=== PATIENT | male | born 1985 | race Caucasian/White ===

== ENCOUNTER 2018-10-09 21:19 | Inpatient (IN) | payer OTHER ==
--- NOTE | 2018-10-09 21:28 | PDOC ---
Rapid Medical Evaluation Time Seen by Provider: 10/09/18 21:26 Medical Evaluation: 10/09/18 21:26 I have performed a brief in-person evaluation of this patient. The patient presents with a chief complaint of: chest pain brought by ems, got ntg 0.8 and asa 81 mg x 4. Pertinent physical exam findings:stable and in NAD, non-focal I have ordered the following:labs, ekg charge nurse aware that patient needs to go into er and brought in The patient will proceed to the ED for further evaluation. 10/09/18 21:43
[2018-10-09 21:29] VITALS: BMI 34.9
[2018-10-09 22:35] LABS: BASO % 0.8 % (0-2.0); EOS % 0.1 % (0-4.5); HEMATOCRIT 45.4 % (35.4-49); HEMOGLOBIN 15.7 GM/dL (11.7-16.9); LYMPH % 17.9 % (8-40); MCH 31.2 pg (25.7-33.7); MCHC 34.5 g/dl (32.0-35.9); MEAN CELL VOLUME 90.4 fl (80-96); MEAN PLT VOLUME 8.9 fl (7.5-11.1); MONO % 9.4 % (3.8-10.2); NEUT % 71.8 % (42.8-82.8); PLATELET COUNT 256 K/MM3 (134-434); RBC 5.03 M/mm3 (4.00-5.60); RDW 12.9 % (11.9-15.9); WHITE BLOOD COUNT 11.8 K/mm3 (4.0-10.0)
--- NOTE | 2018-10-09 22:37 | PDOC ---
Attending Attestation - Resident Resident Name: Leo Thomas - ED Attending Attestation I have performed the following: I have examined & evaluated the patient, The case was reviewed & discussed with the resident, I agree w/resident's findings & plan - HPI HPI: 10/10/18 02:31 see resident hpi - Physicial Exam PE: 10/10/18 02:31 agree with resident exam - Medical Decision Making 10/10/18 02:31 33 yo male with lightheadedness /cp and elevated bp Labs reveal both hypokalemia and hypomagnesemia, replacement administred in ED Patient has been persistently tachycardic and hypertensive Plan for CTA due to active intermittent chest pain and admission to medical service for further evaluation
[2018-10-09 22:47] LABS: INR 1.13 (0.83-1.09); PROTHROMBIN TIME (PATIENT) 13.3 SEC (9.7-13.0)
[2018-10-09 22:54] LABS: MAGNESIUM 0.9 mg/dL (1.8-2.4)
[2018-10-09 23:02] LABS: ALBUMIN 4.1 g/dl (3.4-5.0); BILIRUBIN,TOTAL 0.7 mg/dL (0.2-1); CALCIUM 8.9 mg/dL (8.5-10.1); CREATININE 1.2 mg/dL (0.55-1.3); POTASSIUM 3.1 mmol/L (3.5-5.1); TOT PROT 7.8 g/dl (6.4-8.2)
--- NOTE | 2018-10-09 23:50 | PDOC ---
History of Present Illness - General Chief Complaint: Chest Pain Stated Complaint: CHEST PAIN Time Seen by Provider: 10/09/18 21:26 History Source: Patient Exam Limitations: No Limitations - History of Present Illness Initial Comments: 10/09/18 23:42 Pieter Butts is an otherwise healthy 33M presenting with high blood pressure and chest pain. 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 Per EMS, SBP in 200s, brought down to 150s after 2x nitrates in ambulance. Describes chest pain as midchest, non-radiating, and has mostly resolved at this time. Denies SOB, dizziness, palpitations, weakness , changes to vision, headache, urinary symptoms. Does not have a good sense of why this is happening other than perhaps stress at work. Has had an episode of this one time in the past many years ago that resolved on its own, has not had any heart or kidney problems since. Denies family history of cardiac disease other than a childhood murmur that he and his sister have, no sudden cardiac deaths in his family. Past History - Past Medical History Allergies/Adverse Reactions: Allergies Allergy/AdvReac Type Severity Reaction Status Date / Time shellfish derived Allergy Verified 10/09/18 23:58 COPD: No HTN: Yes (no meds) - Immunization History Immunization Up to Date: No - Suicide/Smoking/Psychosocial Hx Smoking History: Current some day smoker Information on smoking cessation initiated: Yes Hx Alcohol Use: No Drug/Substance Use Hx: No Review of Systems - Review of Systems Constitutional: No: Symptoms Reported HEENTM: No: Eye Pain, Blurred Vision, Tinnitus, Nose Bleeding, Hearing Loss, Mouth Swelling Cardiac (ROS): Yes: Chest Pain, Chest Tightness. No: Edema, Lightheadedness, Palpitations, Syncope ABD/GI: No: Constipated, Diarrhea, Nausea, Vomiting : No: Burning, Dysuria, Discharge, Frequency, Flank Pain, Hematuria, Incontinence, Pain, Urgency Musculoskeletal: No: Back Pain, Muscle Pain, Muscle Weakness Integumentary: No: Symptoms Reported Neurological: No: Headache, Numbness, Tingling Endocrine: No: Symptoms Reported Hematologic/Lymphatic: No: Symptoms Reported All Other Systems: Reviewed and Negative *Physical Exam - Vital Signs Last Vital Signs Temp Pulse Resp BP Pulse Ox 98.9 F 112 H 16 159/113 H 100 10/09/18 21:25 10/09/18 22:49 10/09/18 22:49 10/09/18 22:49 10/09/18 22:49 - Physical Exam General Appearance: Yes: Nourished, Appropriately Dressed, Obese. No: Apparent Distress HEENT: positive: EOMI, CHRISTIANO, Normal Voice, Pharynx Normal. negative: Scleral Icterus (R), Scleral Icterus (L), Pharyngeal Erythema, Tonsillar Exudate, Tonsillar Erythema, Nasal Congestion Neck: positive: Trachea midline, Normal Thyroid, Supple. negative: Tender, Rigid, Lymphadenopathy (R), Lymphadenopathy (L) Respiratory/Chest: positive: Lungs Clear, Normal Breath Sounds. negative: Chest Tender, Respiratory Distress, Labored Respiration, Crackles, Rales, Rhonchi Cardiovascular: positive: Regular Rhythm, Tachycardia. negative: Edema, Murmur Gastrointestinal/Abdominal: positive: Normal Bowel Sounds, Tender, Soft. negative: Organomegaly Musculoskeletal: positive: Normal Inspection. negative: CVA Tenderness Extremity: positive: Normal Capillary Refill, Normal Inspection, Normal Range of Motion. negative: Tender, Pelvis Stable Integumentary: positive: Normal Color, Dry, Warm Neurologic: positive: Fully Oriented, Alert, Normal Mood/Affect, Normal Response ED Treatment Course - LABORATORY CBC & Chemistry Diagram: 10/09/18 22:25 10/10/18 01:30 - ADDITIONAL ORDERS Additional order review: Laboratory Results 10/09/18 10/09/18 10/09/18 22:25 22:25 22:25 PT with INR 13.30 H INR 1.13 H Sodium 137 Potassium 3.1 L Chloride 97 L Carbon Dioxide 23 Anion Gap 16 BUN 7.0 Creatinine 1.2 Est GFR (CKD-EPI)AfAm 92.18 Est GFR (CKD-EPI)NonAf 79.53 Random Glucose 145 H Calcium 8.9 Magnesium 0.9 L Total Bilirubin 0.7 AST 84 H ALT 95 H Alkaline Phosphatase 73 Creatine Kinase 923 H Creatine Kinase Index 0.8 CK-MB (CK-2) 7.9 H Troponin I 0.02 Total Protein 7.8 Albumin 4.1 10/09/18 22:25 RBC 5.03 MCV 90.4 MCHC 34.5 RDW 12.9 MPV 8.9 Neutrophils % 71.8 Lymphocytes % 17.9 Monocytes % 9.4 Eosinophils % 0.1 Basophils % 0.8 - RADIOLOGY Radiology Studies Ordered: Category Date Time Status CHEST X-RAY PORTABLE* [RAD] Stat Radiology 10/09/18 22:34 Taken Medical Decision Making - Medical Decision Making 10/09/18 23:42 Pieter Butts is an otherwise healthy 33M presenting with high blood pressure and chest pain. Presentation concerning for hypertensive urgency vs. emergency, as well as SD vs. aortic dissection. Will evaluate via: CMP CBC CP ECG CXR Will repeat VS and re-assess. 10/10/18 01:58 Patient remains persistently tachycardic despite fluids and rest, cannot r/o PE as an underlying cause. SBP 150s-180s without medication, patient denies any symptoms of end-organ failure including vision changes, urinary sx. Getting CTA to evaluate for PE. 2+ proteinuria on UA. Will need admission for further evaluation of patient's HTN and tachycardia. In absence of PE, concerned for anxiety vs. pheochromacytoma vs. renal artery stenosis vs. hyperthyroidism vs. other adrenal pathology. 10/10/18 04:10 CTA results negative for PE, has fatty liver. Does not have a PMD. Reports that he is anxious about having tests run, nurse reports he was jittery while getting CTA. K improved 3.1 -> 3.4, giving another 40mg PO K. CK up to 975. 10/10/18 04:21 HR down to 80s when sleeping, consistent with anxiety. However, HTN persists, SBP ranges from 160s-180s. 10/10/18 05:11 Discussed admission to tele/obs with Dr. Raymond under Dr. Ferguson. *DC/Admit/Observation/Transfer Diagnosis at time of Disposition: Tachycardia Hypertension Qualifiers: Hypertension type: unspecified Qualified Code(s): I10 - Essential (primary) hypertension - Discharge Dispostion Condition at time of disposition: Stable Decision to Admit order: Yes - Referrals - Patient Instructions - Post Discharge Activity
[2018-10-09] MEDS ORDERED: MAGNESIUM SULF 50% (8.12 MEQ/2 ML-1 GM VIAL) IVPB ONE (23:56)
[2018-10-09] MEDS ORDERED: POTASSIUM CHLORIDE TABS 20 MEQ TABLET.ER (FP) PO ONE (23:57)
[2018-10-10] MEDS ORDERED: MAGNESIUM 1GM/D5W - 2 GM/200 ML IVPB IVPB ONE (00:01)
[2018-10-10 01:53] LABS: EPI CELLS 11.9 /HPF (0-5/HPF); HYALINE CASTS 29 /lpf (0-8); URINE APPEARANCE CLOUDY; URINE BACTERIA 3679.1 /hpf (NEGATIVE); URINE BILIRUBIN 1+ (NEGATIVE); URINE COLOR DK YELLOW; URINE GLUCOSE (UA) TRACE (NEGATIVE); URINE KETONE TRACE (NEGATIVE); URINE LEUK ESTERASE 1+ (NEGATIVE); URINE NITRITE NEGATIVE (NEGATIVE); URINE PROTEIN 2+ (NEGATIVE); URINE RBC 1 /hpf (0-4); URINE WBC 13 /hpf (0-5)
[2018-10-10 01:59] LABS: COCAINE, UR NEGATIVE ng/ml (CUTOFF=300); METHADONE, UR NEGATIVE ng/ml (CUTOFF=300); OPIATES, URI NEGATIVE ng/ml (CUTOFF=300); PHENCYCLIDINE,URINE NEGATIVE ng/ml (CUTOFF=25); URINE AMPHETAMINES NEGATIVE ng/ml (CUTOFF=500); URINE BARBITURATES NEGATIVE ng/ml (CUTOFF=200); URINE BENZODIAZEPINES NEGATIVE ng/ml (CUTOFF=200)
[2018-10-10 02:35] LABS: ALBUMIN 4.2 g/dl (3.4-5.0); BLOOD UREA NITROGEN 8.3 mg/dL (7-18); CALCIUM 8.7 mg/dL (8.5-10.1); CREATININE 1.1 mg/dL (0.55-1.3); POTASSIUM 3.4 mmol/L (3.5-5.1); TOT PROT 8.1 g/dl (6.4-8.2)
[2018-10-10] MEDS ORDERED: POTASSIUM CHLORIDE TABS 20 MEQ TABLET.ER (FP) PO ONE ×2 (03:46→04:05)
[2018-10-10 04:00] VITALS: TEMP 99.3
--- NOTE | 2018-10-10 05:31 | PN ---
Teaching Attending Note Name of Resident: Paul Velarde ATTENDING PHYSICIAN STATEMENT I saw and evaluated the patient. chart, imaging, data reviewed. I reviewed the resident's note and discussed the case with the resident. I agree with the resident's findings and plan as documented. SUBJECTIVE: 33yo man, morbidly obese, with prior episode of htn, c/o anxiety, chest pain, fast heart rate which began around 3pm on 10/09 and persisted until he was in ambulance in route to [facility]. He attributes this to not eating properly and increased stressed at work. Denied any previous kidney disease or heart disease. Reports feeling better now. OBJECTIVE: Last Vital Signs Temp Pulse Resp BP Pulse Ox 99.3 F 108 H 20 167/112 H 100 10/10/18 03:45 10/10/18 03:45 10/10/18 03:45 10/10/18 03:45 10/10/18 03:45 general- obese, nontoxic heent- moist oral mucosa neck supple cv -s1+s2+ tachycardia chest clear abdomen -soft nt ext -no edema Abnormal Lab Results 10/09/18 10/09/18 10/09/18 22:25 22:25 22:25 WBC 11.8 H Absolute Neuts (auto) 8.4 H PT with INR INR Potassium 3.1 L Chloride 97 L Random Glucose 145 H Magnesium 0.9 L AST 84 H ALT 95 H Creatine Kinase 923 H CK-MB (CK-2) 7.9 H Urine Protein Urine Ketones Urine Bilirubin Ur Leukocyte Esterase 10/09/18 10/10/18 10/10/18 22:25 01:30 01:30 WBC Absolute Neuts (auto) PT with INR 13.30 H INR 1.13 H Potassium 3.4 L Chloride 97 L Random Glucose 138 H Magnesium AST 87 H ALT 94 H Creatine Kinase CK-MB (CK-2) Urine Protein 2+ H Urine Ketones Trace H Urine Bilirubin 1+ H Ur Leukocyte Esterase 1+ H 10/10/18 01:30 WBC Absolute Neuts (auto) PT with INR INR Potassium Chloride Random Glucose Magnesium AST ALT Creatine Kinase 975 H CK-MB (CK-2) 8.1 H Urine Protein Urine Ketones Urine Bilirubin Ur Leukocyte Esterase ekg reviewed - sinus tachycardia ASSESSMENT AND PLAN: severe hypertension, sinus tachy, electrolyte disturbances . Uncertain etiology , may be from malnutrition DD includes conns syndrome-especially snce low mg, hypertyrhyoidism unlikely as tsh was wnl, substance abuse- although utox negative. R/o pheochromocytoma. Doubt acs as trops neg x2. Doubt aortic dissection or PE. No risk factors for PE. -tele obs -trend trops -echo -24hr vma in urine -24hr urine cortisol -montitor vs closely -renal a. dopple u/s -replete mg, k, repeat -f/u CTA report -dvt ppx -heparin sc
--- NOTE | 2018-10-10 07:26 | HP ---
CHIEF COMPLAINT: Substernal chest pain for 12 hours PCP: None HISTORY OF PRESENT ILLNESS: This is a 33 year old male with no significant PMH. He presented to the ER with complaints of gradual onset, exertional substernal chest pain from 4PM to 2AM today. 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 The pain was rated 8/ 10 in intensity, with a pressure like quality, intermittent in nature, and not associated with any dizziness and SOB. There are no associated complaints of light headedness, palpitations, nausea, vomiting, diarrhea, constipation, dysuria, or hematuria. ER course was notable for: (1) CTA no acute pathology (2) B/P 167/112 (3) Trops 2x negative, EKG no ST changes Recent Travel: [facility] and [place] for 1 day, no hiking or sick contacts PAST MEDICAL HISTORY: States that he had a murmur as a child PAST SURGICAL HISTORY: None Social History: Smokin-2 cigars a week, no cigarettes Alcohol: socially Drugs: none Family History: Allergies shellfish derived Allergy (Verified 10/09/18 23:58) HOME MEDICATIONS: REVIEW OF SYSTEMS CONSTITUTIONAL: Absent: fever, chills, diaphoresis, generalized weakness, malaise, loss of appetite, weight change HEENT: Absent: rhinorrhea, nasal congestion, throat pain, throat swelling, difficulty swallowing, mouth swelling, ear pain, eye pain, visual changes CARDIOVASCULAR: Absent: chest pain, syncope, palpitations, irregular heart rate, lightheadedness , peripheral edema RESPIRATORY: CHEST PAIN Absent: cough, shortness of breath, dyspnea with exertion, orthopnea, wheezing, stridor, hemoptysis GASTROINTESTINAL: Absent: abdominal pain, abdominal distension, nausea, vomiting, diarrhea, constipation, melena, hematochezia GENITOURINARY: Absent: dysuria, frequency, urgency, hesitancy, hematuria, flank pain, genital pain MUSCULOSKELETAL: Absent: myalgia, arthralgia, joint swelling, back pain, neck pain SKIN: Absent: rash, itching, pallor HEMATOLOGIC/IMMUNOLOGIC: Absent: easy bleeding, easy bruising, lymphadenopathy, frequent infections ENDOCRINE: Absent: unexplained weight gain, unexplained weight loss, heat intolerance, cold intolerance NEUROLOGIC: Absent: headache, focal weakness or paresthesias, dizziness, unsteady gait, seizure, mental status changes, bladder or bowel incontinence PSYCHIATRIC: Absent: anxiety, depression, suicidal or homicidal ideation, hallucinations. PHYSICAL EXAMINATION Vital Signs - 24 hr 10/09/18 10/09/18 10/10/18 21:25 22:49 00:35 Temperature 98.9 F Pulse Rate 118 H Pulse Rate [ 112 H 105 H Left Radial] Respiratory 19 16 22 H Rate Blood Pressure 134/99 Blood Pressure 159/113 H 183/108 H [Right Arm] O2 Sat by Pulse 100 100 100 Oximetry (%) 10/10/18 10/10/18 03:41 03:45 Temperature 99.3 F Pulse Rate Pulse Rate [ 108 H Left Radial] Respiratory 20 Rate Blood Pressure Blood Pressure 167/112 H [Right Arm] O2 Sat by Pulse 97 100 Oximetry (%) GENERAL: Awake, alert, and fully oriented, in no acute distress. HEAD: Normal with no signs of trauma. EYES: Pupils equal, round and reactive to light, extraocular movements intact, sclera anicteric, conjunctiva clear. No lid lag. EARS, NOSE, THROAT: Ears normal, nares patent, oropharynx clear without exudates. Moist mucous membranes. NECK: Normal range of motion, supple without lymphadenopathy, JVD, or masses. LUNGS: Breath sounds equal, clear to auscultation bilaterally. No wheezes, and no crackles. No accessory muscle use. HEART: Regular rate and rhythm, normal S1 and S2 without murmur, rub or gallop. ABDOMEN: Soft, nontender, not distended, normoactive bowel sounds, no guarding, no rebound, no masses. No hepatomegaly or splenomegaly. MUSCULOSKELETAL: Normal range of motion at all joints. No bony deformities or tenderness. No CVA tenderness. UPPER EXTREMITIES: 2+ pulses, warm, well-perfused. No cyanosis. No clubbing. No peripheral edema. LOWER EXTREMITIES: 2+ pulses, warm, well-perfused. No calf tenderness. No peripheral edema. NEUROLOGICAL: Cranial nerves II-XII intact. Normal speech. Normal gait. PSYCHIATRIC: Cooperative. Good eye contact. Appropriate mood and affect. SKIN: Warm, dry, normal turgor, no rashes or lesions noted, normal capillary refill. Laboratory Results - last 24 hr 10/09/18 10/09/18 10/09/18 22:25 22:25 22:25 WBC 11.8 H RBC 5.03 Hgb 15.7 Hct 45.4 MCV 90.4 MCH 31.2 MCHC 34.5 RDW 12.9 Plt Count 256 MPV 8.9 Absolute Neuts (auto) 8.4 H Neutrophils % 71.8 Lymphocytes % 17.9 Monocytes % 9.4 Eosinophils % 0.1 Basophils % 0.8 Nucleated RBC % 0 PT with INR INR Sodium 137 Potassium 3.1 L Chloride 97 L Carbon Dioxide 23 Anion Gap 16 BUN 7.0 Creatinine 1.2 Est GFR (CKD-EPI)AfAm 92.18 Est GFR (CKD-EPI)NonAf 79.53 Random Glucose 145 H Calcium 8.9 Magnesium 0.9 L Total Bilirubin 0.7 AST 84 H ALT 95 H Alkaline Phosphatase 73 Creatine Kinase 923 H Creatine Kinase Index 0.8 CK-MB (CK-2) 7.9 H Troponin I 0.02 Total Protein 7.8 Albumin 4.1 TSH 3.48 Urine Color Urine Appearance Urine pH Ur Specific [place] Urine Protein Urine Glucose (UA) Urine Ketones Urine Blood Urine Nitrite Urine Bilirubin Urine Urobilinogen Ur Leukocyte Esterase Urine WBC (Auto) Urine RBC (Auto) Urine Casts (Auto) U Epithel Cells (Auto) Urine Bacteria (Auto) Opiates Screen Methadone Screen Barbiturate Screen Phencyclidine Screen Ur Amphetamines Screen MDMA (Ecstasy) Screen Benzodiazepines Screen Cocaine Screen U Marijuana (THC) Screen 10/09/18 10/10/18 10/10/18 22:25 01:30 01:30 WBC RBC Hgb Hct MCV MCH MCHC RDW Plt Count MPV Absolute Neuts (auto) Neutrophils % Lymphocytes % Monocytes % Eosinophils % Basophils % Nucleated RBC % PT with INR 13.30 H INR 1.13 H Sodium Potassium Chloride Carbon Dioxide Anion Gap BUN Creatinine Est GFR (CKD-EPI)AfAm Est GFR (CKD-EPI)NonAf Random Glucose Calcium Magnesium Total Bilirubin AST ALT Alkaline Phosphatase Creatine Kinase Creatine Kinase Index CK-MB (CK-2) Troponin I Total Protein Albumin TSH Urine Color Dk yellow Urine Appearance Cloudy Urine pH 7.0 Ur Specific [place] 1.027 Urine Protein 2+ H Urine Glucose (UA) Trace Urine Ketones Trace H Urine Blood Negative Urine Nitrite Negative Urine Bilirubin 1+ H Urine Urobilinogen 1.0 Ur Leukocyte Esterase 1+ H Urine WBC (Auto) 13 Urine RBC (Auto) 1 Urine Casts (Auto) 29 U Epithel Cells (Auto) 11.9 Urine Bacteria (Auto) 3679.1 Opiates Screen Negative Methadone Screen Negative Barbiturate Screen Negative Phencyclidine Screen Negative Ur Amphetamines Screen Negative MDMA (Ecstasy) Screen Negative Benzodiazepines Screen Negative Cocaine Screen Negative U Marijuana (THC) Screen Negative 10/10/18 10/10/18 01:30 01:30 WBC RBC Hgb Hct MCV MCH MCHC RDW Plt Count MPV Absolute Neuts (auto) Neutrophils % Lymphocytes % Monocytes % Eosinophils % Basophils % Nucleated RBC % PT with INR INR Sodium 139 Potassium 3.4 L Chloride 97 L Carbon Dioxide 26 Anion Gap 15 BUN 8.3 Creatinine 1.1 Est GFR (CKD-EPI)AfAm 102.40 Est GFR (CKD-EPI)NonAf 88.36 Random Glucose 138 H Calcium 8.7 Magnesium Total Bilirubin 1.0 AST 87 H ALT 94 H Alkaline Phosphatase 75 Creatine Kinase 975 H Creatine Kinase Index 0.8 CK-MB (CK-2) 8.1 H Troponin I 0.02 Total Protein 8.1 Albumin 4.2 TSH Urine Color Urine Appearance Urine pH Ur Specific [place] Urine Protein Urine Glucose (UA) Urine Ketones Urine Blood Urine Nitrite Urine Bilirubin Urine Urobilinogen Ur Leukocyte Esterase Urine WBC (Auto) Urine RBC (Auto) Urine Casts (Auto) U Epithel Cells (Auto) Urine Bacteria (Auto) Opiates Screen Methadone Screen Barbiturate Screen Phencyclidine Screen Ur Amphetamines Screen MDMA (Ecstasy) Screen Benzodiazepines Screen Cocaine Screen U Marijuana (THC) Screen ASSESSMENT/PLAN: This is a 33 year old male with no significant PMH. He presented to the ER with complaints of gradual onset, exertional substernal chest pain from 4PM to 2AM today, and found to have BP of 167/112. He was admitted to r/o ACS as well as to manage HTN. # Chest pain - r/o ACS, EKG no ST changes, sinus tachycardia T - Trops negative x2, continue to trend - r/o PE, low suspicion, CTA shows no signs in prelim reading, F/U report - Tele observation - Echo (hx of murmur) - Cardio consult placed # HTN - Labetalol, will also control HR - Conns syndrome may be likely in setting of hypokalemia, renin aldosterone testing may be done outpatient - Duplex abdomen to check for renal artery stenosis - 24 hour urine VMA to r/o Pheochromocytoma #Leukocytosis - WBC 11.8 - Trace ketones on UA, urine cx ordered #Hyperglycemia - May be pre diabetic, HbA1c ordered - BGM #FEN - Replete Mg, K - Na/Low chol diet ordered #DVT PE - Heparin SQ #Code status - Full code ATTENDING PHYSICIAN STATEMENT I saw and evaluated the patient. I reviewed the resident's note and discussed the case with the resident. I agree with the resident's findings and plan as documented. SUBJECTIVE: OBJECTIVE: ASSESSMENT AND PLAN:
[2018-10-10] MEDS ORDERED: LABETALOL HCL 100 MG TABLET (FP) PO SCH (08:45)
[2018-10-10] MEDS ORDERED: LABETALOL HCL 100 MG TABLET (FP) ONE (09:46)
[2018-10-10] MEDS ORDERED: ENOXAPARIN NA (PORCINE) 40 MG/0.4 ML DISP.SYRIN SQ SCH (10:00)
[2018-10-10 10:15] LABS: BILIRUBIN,TOTAL 1.5 mg/dL (0.2-1); CALCIUM 8.7 mg/dL (8.5-10.1); MAGNESIUM 1.7 mg/dL (1.8-2.4); PHOSPHOROUS 2.8 mg/dL (2.5-4.9); POTASSIUM 3.6 mmol/L (3.5-5.1); TOT PROT 7.7 g/dl (6.4-8.2)
[2018-10-10 10:22] LABS: BASO % 0.5 % (0-2.0); EOS % 1.4 % (0-4.5); HEMATOCRIT 44.3 % (35.4-49); HEMOGLOBIN 15.7 GM/dL (11.7-16.9); LYMPH % 27.8 % (8-40); MCH 31.5 pg (25.7-33.7); MCHC 35.4 g/dl (32.0-35.9); MEAN CELL VOLUME 88.9 fl (80-96); MEAN PLT VOLUME 8.7 fl (7.5-11.1); MONO % 10.9 % (3.8-10.2); NEUT % 59.4 % (42.8-82.8); PLATELET COUNT 226 K/MM3 (134-434); RBC 4.98 M/mm3 (4.00-5.60); RDW 12.8 % (11.9-15.9); WHITE BLOOD COUNT 7.9 K/mm3 (4.0-10.0)
[2018-10-10] MEDS ORDERED: MAGNESIUM OXIDE 400 MG TABLET (FP) PO ONE (11:30)
[2018-10-10 12:23] LABS: BILIRUBIN,DIRECT 0.4 mg/dL (0.0-0.2)
--- NOTE | 2018-10-10 12:25 | EKG ---
Test Reason : Blood Pressure : / mmHG Vent. Rate : 109 BPM Atrial Rate : 109 BPM P-R Int : 126 ms QRS Dur : 074 ms QT Int : 370 ms P-R-T Axes : 026 -11 101 degrees QTc Int : 498 ms SINUS TACHYCARDIA LEFT VENTRICULAR HYPERTROPHY WITH REPOLARIZATION ABNORMALITY ABNORMAL ECG NO PREVIOUS ECGS AVAILABLE Confirmed by VERNELL MORRISON, DUYEN ([id number]) on 10/10/2018 12:24:28 PM Referred By: Confirmed By:DUYEN MATT MD
[2018-10-10] MEDS ORDERED: HEPARIN NA (PORCINE) 5,000 UNITS/ML 1ML VIAL SQ SCH (14:00)
--- NOTE | 2018-10-10 14:03 | ECHO ---
Name: LILLIAM FRYE Exam:Adult Echocardiogram Study Date: 10/10/2018 08:56 AM Age: 33 yrs Reason For Study: BASELINE ANA BLOOD PRESSURE DIZZY Height: 65 in Weight: 210 lb BSA: 2.0 m2 MMode/2D Measurements & Calculations IVSd: 1.1 cm Ao root diam: 2.8 cm LVIDd: 5.2 cm LA dimension: 3.8 cm LVIDs: 3.2 cm LVPWd: 1.1 cm EDV(Teich): 129.3 ml LVOT diam: 2.1 cm ESV(Teich): 42.1 ml Doppler Measurements & Calculations MV E max josef: 79.5 cm/sec Ao V2 max: 132.0 cm/sec MV A max josef: 83.9 cm/sec Ao max P.0 mmHg MV E/A: 0.95 MV dec time: 0.20 sec YO(V,D): 3.1 cm2 LV V1 max P.7 mmHg SV(LVOT): 66.3 ml LV V1 mean P.4 mmHg LV V1 max: 119.4 cm/sec LV V1 mean: 86.8 cm/sec LV V1 VTI: 19.6 cm Med Peak E' Josef: 11.8 cm/sec Med E/e': 6.7 Lat Peak E' Josef: 9.2 cm/sec Lat E/e': 8.6 Procedure A complete two-dimensional transthoracic echocardiogram was performed (2D, M-mode, Doppler and color flow Doppler). The study was technically difficult with many images being suboptimal in quality. Left Ventricle The left ventricle is grossly normal size. Left ventricular systolic function is grossly normal. Haydee onal wall motion abnormalities cannot be excluded due to limited visualization. Right Ventricle The right ventricle is grossly normal size. The right ventricular systolic function is grossly normal . Atria Normal left and right atrial size and function. Mitral Valve There is no mitral regurgitation noted. Tricuspid Valve There is trace tricuspid regurgitation. There was insufficient TR detected to calculate RV systolic p ressure. Aortic Valve No hemodynamically significant valvular aortic stenosis. No aortic regurgitation is present. Pulmonic Valve There is no pulmonic valvular regurgitation. Great Vessels The aortic root is normal size. Pericardium/Pleura There is no pericardial effusion. Interpretation Summary The study was technically difficult with many images being suboptimal in quality. Left ventricular systolic function is grossly normal. The right ventricular systolic function is grossly normal. There is trace tricuspid regurgitation. MD Beto Turner 10/10/2018 02:03 PM
--- NOTE | 2018-10-10 15:41 | CON.CARD ---
Consult Consult Specialty:: Cardiology Referred by:: Hayden Ferguson Reason for Consultation:: chest pain - History of Present Illness Chief Complaint: elevated bp and chest pain History of Present Illness: 33 year old male with a pmhx of htn (not on meds and does not follow with a pmd ) and obesity. He has been working very hard lately and under a lot of stress. He asked to leave early yesterday and was told no. He became frustrated and upset and than "felt like his pressure was up" Started to also feel warm with some mild mid-chest pain that was non-radiating. No sob or palpitations. Reports bp was high when checked at facility and called ems. Feels well and currently wants to go home. Says he walks a lot at work and has no chest pain or dyspnea on exertion. No family history of WA or sudden cardiac . - History Source History Provided By: Patient, Medical Record - Past Medical History Cardio/Vascular: Yes: HTN - Alcohol/Substance Use Hx Alcohol Use: No - Smoking History Smoking history: Current some day smoker Home Medications - Allergies Allergies/Adverse Reactions: Allergies Allergy/AdvReac Type Severity Reaction Status Date / Time shellfish derived Allergy Verified 10/09/18 23:58 - Home Medications Home Medications: Ambulatory Orders NK [No Known Home Medication] 10/10/18 Vital Signs: Vital Signs Temperature 99.3 F 10/10/18 03:45 Pulse Rate 89 10/10/18 09:50 Respiratory Rate 18 10/10/18 09:50 Blood Pressure 151/98 10/10/18 09:50 O2 Sat by Pulse Oximetry (%) 100 10/10/18 09:50 Constitutional: Yes: No Distress Neck: Yes: Supple Respiratory: Yes: CTA Bilaterally Gastrointestinal: Yes: Soft Cardiovascular: Yes: Regular Rate and Rhythm JVD: No Carotid Bruit: No PMI: Non-Displaced Heart Sounds: Yes: S1, S2 Murmur: No: Systolic Murmur Edema: No - Other Data Labs, Other Data: CBC, BMP 10/10/18 09:29 10/10/18 09:29 INR, PTT INR 1.13 (0.83-1.09) H 10/09/18 22:25 Troponin, BNP 10/09/18 10/10/18 22:25 01:30 Troponin I 0.02 0.02 Troponin, BNP 10/09/18 10/10/18 22:25 01:30 Troponin I 0.02 0.02 Imaging - Results Chest X-ray: Report Reviewed Cat Scan: Report Reviewed EKG: Image Reviewed Assessment/Plan 33 year old male with a pmhx of htn (not on meds and does not follow with a pmd ) and obesity. -EKG: sinus tachycardic at 109bpm, nl axis, lvh with repolarization abnormalities -CXR unremarkable CTA no pe noted Troponins negative Echocardiogram normal lvef and no significant valve disease. -Has remained asymptomatic all day. Exam remained unremarkable. -No further cardiac work up at this time inpatient. Plan for bp control. Started on labetalol which is fine but would consider other agents such as amlodipine/nifedipine. Work up for secondary htn which can be done as an outpatient. Check renin/geri levels Check renal sono for renal artery stenosis. -Should follow up as outpatient in week or two with Dr. Schaffer [phone] Also needs a primary care doctor
--- NOTE | 2018-10-10 16:11 | PN ---
Teaching Attending Note Name of Resident: Hunter Henderson ATTENDING PHYSICIAN STATEMENT I saw and evaluated the patient. I reviewed the resident's note and discussed the case with the resident. I agree with the resident's findings and plan as documented. SUBJECTIVE: asymptomatic now. states he been under extreme amounts of stress lately. has not had panic attacks or episodes of CP in the past. denies CP, SOB , fever, chills, n/V/C/D OBJECTIVE: Last Vital Signs Temp Pulse Resp BP Pulse Ox 99.3 F 89 18 151/98 100 10/10/18 03:45 10/10/18 09:50 10/10/18 09:50 10/10/18 09:50 10/10/18 09:50 General NAd CV S1 S2 RRR no murmur/rub/gallop Lungs CTA B/L no wheezing/rales/rhonchi ASSESSMENT AND PLAN: 33yo M [facility] obesity presented to the ER [facility] CP and found to have HTN urgency 1. HTN urgency-good response to labetolol. will likely require more than one agent to control BP. start norvasc. echo reviewed. will need to follow up [facility] cardio as outpatient would benefit from screening for 2ndary causes of HTN 2. Obesity- dietary modifications. barriatric referral 3. can d/c home
[2018-10-10] MEDS ORDERED: amLODIPine BESYLATE 5 MG TABLET (FP) PO STA (16:28)
[2018-10-10] MEDS ORDERED: amLODIPine BESYLATE 5 MG TABLET (FP) ONE (16:29)
[2018-10-10 16:34] VITALS: PULSE 98
[2018-10-10 17:25] VITALS: BP 188/137
--- NOTE | 2018-10-11 06:14 | DS ---
Physical Exam: SUBJECTIVE: 33 y/o M w PMH of obesity and elevated BP undiagnosed HTN whom c/o CP, stress, and anx 2/2 to employment demand, seen and examined at bedside in ED. Pt cleared by cardiology w instructions to start antihypertensives and est primary care. Pt left AMA. OBJECTIVE: Vital Signs Period Temp Pulse Resp BP Sys/Voss Pulse Ox Last 24 Hr 89-98 18-18 151-188/98-137 99-100 PHYSICAL EXAM GENERAL: The patient is awake, alert, and fully oriented, in no acute distress. Disheveled appearance. HEAD: Normal with no signs of trauma. EYES: PERRL, extraocular movements intact, sclera anicteric, conjunctiva clear. ENT: Ears normal, nares patent, oropharynx clear without exudates, moist mucous membranes. NECK: Trachea midline, full range of motion, supple. LUNGS: Breath sounds equal, clear to auscultation bilaterally, no wheezes, no crackles, no accessory muscle use. HEART: Regular rate and rhythm, S1, S2 without murmur, rub or gallop. ABDOMEN: Soft, nontender, nondistended, normoactive bowel sounds, no guarding, no rebound, no hepatosplenomegaly, no masses. EXTREMITIES: 2+ pulses, warm, well-perfused, no edema. NEUROLOGICAL: Cranial nerves II through XII grossly intact. Normal speech, gait not observed. PSYCH: Normal mood, normal affect. SKIN: Warm, dry, normal turgor, no rashes or lesions noted. LABS Laboratory Results - last 24 hr 10/10/18 10/10/18 10/10/18 01:30 09:29 09:29 WBC 7.9 RBC 4.98 Hgb 15.7 Hct 44.3 MCV 88.9 MCH 31.5 MCHC 35.4 RDW 12.8 Plt Count 226 MPV 8.7 Absolute Neuts (auto) 4.7 Neutrophils % 59.4 Lymphocytes % 27.8 D Monocytes % 10.9 H Eosinophils % 1.4 D Basophils % 0.5 Nucleated RBC % 0 Sodium 139 139 Potassium 3.4 L 3.6 Chloride 97 L 102 Carbon Dioxide 26 28 Anion Gap 15 9 BUN 8.3 8.0 Creatinine 1.1 1.0 Est GFR (CKD-EPI)AfAm 102.40 114.91 Est GFR (CKD-EPI)NonAf 88.36 99.15 Random Glucose 138 H 129 H Hemoglobin A1c % Calcium 8.7 8.7 Phosphorus 2.8 Magnesium 1.7 L Total Bilirubin 1.0 1.5 H Direct Bilirubin 0.4 H AST 87 H 70 H ALT 94 H 87 H Alkaline Phosphatase 75 78 Total Protein 8.1 7.7 Albumin 4.2 4.0 Triglycerides 193 H Cholesterol 192 Total LDL Cholesterol 104 H HDL Cholesterol 63 H TSH 3.37 D 10/10/18 09:29 WBC RBC Hgb Hct MCV MCH MCHC RDW Plt Count MPV Absolute Neuts (auto) Neutrophils % Lymphocytes % Monocytes % Eosinophils % Basophils % Nucleated RBC % Sodium Potassium Chloride Carbon Dioxide Anion Gap BUN Creatinine Est GFR (CKD-EPI)AfAm Est GFR (CKD-EPI)NonAf Random Glucose Hemoglobin A1c % 6.3 Calcium Phosphorus Magnesium Total Bilirubin Direct Bilirubin AST ALT Alkaline Phosphatase Total Protein Albumin Triglycerides Cholesterol Total LDL Cholesterol HDL Cholesterol TSH HOSPITAL COURSE: Date of Admission:10/10/18 33 y/o M w PMH obesity presented to the ER wt CP and found to have HTN urgency. HTN urgency demonstrated good response to labetolol. Pt will likely require more than one agent to control BP. Norvasc was started. Echo demonstrated LV hypertrophy. Pt seen by cement gun operator and will need to follow up w cardio as outpatient. Pt would benefit from screening for secondary causes of HTN; including but not liminted to renal artery US. Educated pt on risks of obesity and benefits of exercise/dietary modifications. Barriatric referral to be provided. Pt left AMA. Date of Discharge: 10/11/18 Hunter Henderson MD Discharge Summary Reason For Visit: TACHYCARDIA, HYPERTENSION Current Active Problems Hypertension (Acute) Tachycardia (Acute) Condition: Good - Instructions Diet, Activity, Other Instructions: YOUR VISIT You were seen in the hospital for evaluation of chest pain. The echocardiogram of your heart revealed normal results. You were evaluated by cement gun operator. Your blood pressure was dangerously elevated, however you refused to stay for further treatment, and left against medical advice. MEDICATIONS You have 2 *NEW* medications that you should take as prescribed: - Labetalol 100 mg twice a day by mouth - Norvasc 5 mg every day by mouth These medications are used to treat high blood pressure ADDITIONAL CARE - Please make an appointment to see a primary care provider 1 week from today. Since you do not currently have one, you can be seen at the [facility] residents clinic located at [facility] [place] [address]. Please call to make an appointment. If you would like to continue seeing Dr. Hunter Henderson, please ask for a Sunday morning appointment. It is important that you make this appointment to find other possible causes of your high blood pressure. - Please make an appointment to have an ultrasound of your kidneys as this may relate to your blood pressure. Further you will need bloodwork to follow up Aldosterone and Renin levels to further work up your elevated blood pressure. You will also need to follow up your bilirubin levels. Discuss this further with your primary care physician at your appointment. Please make an appointment to follow up with cement gun operator Dr. Schaffer within one week of discharge. A referral to Bariatric surgeon Dr. Esposito has been provided to further discuss weight loss strategies. ADDITIONAL INFORMATION Please call 911 or come directly to the emergency department if you experience unusual headache, vision change, shortness of breath, chest pain, numbness, tingling, loss of alertness/awareness, loss of function, unusual bleeding or any alarming symptoms. Referrals: Nils Wilson MD [Staff Physician] - Brandt Esposito MD [Staff Physician] - Kirby Schaffer MD [Staff Physician] - Disposition: AGAINST MEDICAL ADVICE - Home Medications Comprehensive Discharge Medication List: Ambulatory Orders Amlodipine Besylate [Norvasc -] 5 mg PO DAILY 30 Days #30 tablet 10/10/18 Labetalol HCl [Normodyne -] 100 mg PO BID 30 Days #60 tablet 10/10/18 ATTENDING PHYSICIAN STATEMENT I saw and evaluated the patient. I reviewed the resident's note and discussed the case with the resident. I agree with the resident's findings and plan as documented. SUBJECTIVE: OBJECTIVE: ASSESSMENT AND PLAN:
== END 2018-10-10 17:39 | disposition left against medical advice (07) | DRG 305 ==
LOC: JER 21:19 → INTOOBSV 10-10 04:15 → JERBED 10-10 04:15 → OBSVTOIN 10-10 04:38
PROVIDERS: ADMIT Internal Medicine; ATTEND Internal Medicine
DX: I16.0 Hypertensive urgency (principal); R07.9 Chest pain, unspecified; I10 Essential (primary) hypertension; D72.829 Elevated white blood cell count, unspecified; R73.9 Hyperglycemia, unspecified; E87.6 Hypokalemia; R00.0 Tachycardia, unspecified; E66.9 Obesity, unspecified; Z68.34 Body mass index [BMI] 34.0-34.9, adult
CPT/HCPCS: 36415; 71045-TC-FY; 71275-TC; 80053; 80061; 80307; 81003; 82248; 82550; 82553; 83036; 83721; 83735; 84100; 84443; 84484; 85025; 85610; 93005; 93010; 93306-TC; 99285-25; G0378